=== PATIENT | male | born 1945 | race Caucasian/White ===

== ENCOUNTER 2016-10-02 07:56 | Emergency (ER) | payer OTHER ==
[2016-10-02 08:20] VITALS: RESP 16
[2016-10-02] MEDS ORDERED: NS 1,000 ML IV ONE (08:29)
[2016-10-02] MEDS ORDERED: HYDROmorphONE/DILAUDID 1 MG/ML SYR IVP ONE (08:29)
[2016-10-02] MEDS ORDERED: ONDANSETRON 4 MG/2 ML VIAL IVP ONE (08:29)
--- NOTE | 2016-10-02 08:33 | UCPHY ---
H & P Patient Type: Established Chief Complaint Nursing Narrative: abd pain x 18 hours or so . intermittent / sharp w movement. Chills. Denies fever Time Seen by Provider: 10/02/16 08:22 HPI/ROS: CHIEF COMPLAINT: Abdominal pain HISTORY OF PRESENT ILLNESS: The patient is a 70-year-old man who comes to the Urgent Care complaining of diffuse abdominal pain for the last 18 hours. He describes it as bilateral upper and lower. He has not had a fever. No vomiting or diarrhea or constipation. Denies chest pain or shortness of breath. He does have a history of coronary artery disease and angioplasty several years ago as well as CLL which is being monitored. He does not have any history of abdominal surgery. No history of aneurysm or dissection. No groin or testicular pain. No back pain. REVIEW OF SYSTEMS: Constitutional: denies: chills, fever, recent illness, recent injury EENTM: denies: blurred vision, double vision, nose congestion Respiratory: denies: cough, shortness of breath Cardiac: denies: chest pain, irregular heart rate, lightheadedness, palpitations Gastrointestinal/Abdominal: See HPI Genitourinary: denies: dysuria, frequency, hematuria, pain Musculoskeletal: denies: joint pain, muscle pain Skin: denies: lesions, rash, jaundice, bruising Neurological: denies: headache, numbness, paresthesia, tingling, dizziness, weakness Hematologic/Lymphatic: denies: blood clots, easy bleeding, easy bruising Immunologic/allergic: denies: HIV/AIDS, transplant EXAM: GENERAL: Well-appearing, obese and in no acute distress. HEAD: Atraumatic, normocephalic. EYES: Pupils equal round and reactive to light, extraocular movements intact, sclera anicteric, conjunctiva are normal. ENT: TMs normal, nares patent, oropharynx clear without exudates. Moist mucous membranes. NECK: Normal range of motion, supple without lymphadenopathy or JVD. LUNGS: Breath sounds clear to auscultation bilaterally and equal. No wheezes rales or rhonchi. HEART: Regular rate and rhythm without murmurs, rubs or gallops. ABDOMEN: Distended, nontender, no guarding or rebound noted BACK: No CVA tenderness, no spinal tenderness, step-offs or deformities EXTREMITIES: Normal range of motion, no pitting or edema. No clubbing or cyanosis. NEUROLOGICAL: Cranial nerves II through XII grossly intact. Normal speech, normal gait. 5/5 strength, normal movement in all extremities, normal sensation PSYCH: Normal mood, normal affect. SKIN: Warm, dry, normal turgor, no visible rashes or lesions. Source: Patient Exam Limitations: No limitations - Personal History Current Tetanus Diphtheria and Acellular Pertussis (TDAP): Yes - Medical/Surgical History Hx Asthma: No Hx Chronic Respiratory Disease: No Hx Diabetes: Yes Hx Cardiac Disease: Yes Hx Renal Disease: No Hx Cirrhosis: No Hx Alcoholism: No Other PMH: CLL since 2001. Prostate issues. Diabetes 2. Tonsilectomy. Coronary artery disease - Family History Significant Family History: Hypertension - Social History Smoking Status: Never smoked Alcohol Use: Sober Drug Use: None Constitutional: Initial Vital Signs Temperature (C) 36.8 C 10/02/16 08:16 Heart Rate 94 10/02/16 08:16 Respiratory Rate 16 10/02/16 08:16 Blood Pressure 138/85 H 10/02/16 08:16 O2 Sat (%) 93 10/02/16 08:16 O2 Delivery Mode Room Air Allergies/Adverse Reactions: aspirin [From Percodan] Allergy (Verified 10/02/16 08:14) Hives oxycodone HCl [From Percodan] Allergy (Verified 10/02/16 08:14) Hives oxycodone terephthalate [From Percodan] Allergy (Verified 10/02/16 08:14) Hives Penicillins Allergy (Verified 10/02/16 08:14) Hives Home Medications: Medication Instructions Recorded Simvastatin 04/14/11 Flomax 10/02/16 Metformin HCl 10/02/16 Zolpidem Tartrate 10/02/16 predniSONE 60 mg PO DAILY #15 tab 10/02/16 Medical Decision Making - Diagnostics EKG Interpretation: An EKG obtained and was read and documented in trace view. Please see trace view for full reading and report. Sinus rhythm, no acute ischemic changes ED Course/Re-evaluation: Patient only has 3 platelets. The rest of his CBC is similar to previous draws. He had normal level of platelets 6 months ago. I will redraw to verify. 10:55 a.m. I discussed the test results with the patient. His abdominal exam remains benign. We discussed the likelihood that he will developed diarrhea and possibly nausea. He was not aware of his low platelets. I have paged his oncologist Dr. Bishop to discuss. He has not had any bleeding. 11:[address] Titus who is on-call for Dr. Bishop. 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 He thinks that bone marrow suppression is unlikely because he is not have a significant white count or anemia. Patient understands and agrees with this plan and declines further workup or testing at this time. Differential Diagnosis: Partial list of the Differential diagnosis considered include but were not limited to; gastroenteritis, diverticulitis, constipation, ITP, , bone marrow suppression and although unlikely based on the history and physical exam, I also considered appendicitis, ischemia, aneurysm, acute coronary disease. I discussed these differential diagnoses and the plan with the patient as well as the usual and expected course. The patient understands that the diagnosis is provisional and that in medicine we are not always correct and that further workup is often warranted. Usual and customary warnings were given. All of the patient's questions were answered. The patient was instructed to return to the emergency department should the symptoms at all worsen or return, otherwise to followup with the physician as we discussed. - Data Points Laboratory Results: Laboratory Results 10/02/16 09:50 10/02/16 08:45 10/02/16 10/02/16 10/02/16 10:05 09:50 08:45 WBC 11.08 10^3/uL H 10^3/uL (3.80-9.50) RBC 4.57 10^6/uL 10^6/uL (4.40-6.38) Hgb 14.3 g/dL g/dL (13.7-17.5) Hct 41.2 % % (40.0-51.0) MCV 90.2 fL fL (81.5-99.8) MCH 31.3 pg pg (27.9-34.1) MCHC 34.7 g/dL g/dL (32.4-36.7) RDW 12.5 % % (11.5-15.2) Plt Count < 3.0 10^3/uL L* 10^3/uL (150-400) MPV 12.9 fL H fL (8.7-11.7) Neut % (Auto) 49.0 % % (39.3-74.2) Lymph % (Auto) 40.2 % % (15.0-45.0) [place] % (Auto) 8.4 % % (4.5-13.0) Eos % (Auto) 1.7 % % (0.6-7.6) Baso % (Auto) 0.4 % % (0.3-1.7) Nucleat RBC Rel Count 0.0 % % (0.0-0.2) Absolute Neuts (auto) 5.44 10^3/uL 10^3/uL (1.70-6.50) Absolute Lymphs (auto) 4.45 10^3/uL H 10^3/uL (1.00-3.00) Absolute Monos (auto) 0.93 10^3/uL H 10^3/uL (0.30-0.80) Absolute Eos (auto) 0.19 10^3/uL 10^3/uL (0.03-0.40) Absolute Basos (auto) 0.04 10^3/uL 10^3/uL (0.02-0.10) Absolute Nucleated RBC 0.00 10^3/uL 10^3/uL (0-0.01) Immature Gran % 0.3 % % (0.0-1.1) Immature Gran # 0.03 10^3/uL 10^3/uL (0.00-0.10) Platelet Estimate Cancelled Smear Review By Cancelled Sodium 135 mEq/L mEq/L (134-144) Potassium 3.9 mEq/L mEq/L (3.5-5.2) Chloride 101 mEq/L mEq/L (97-110) Carbon Dioxide 25 mEq/l mEq/l (22-31) Anion Gap 9 mEq/L mEq/L (8-16) BUN 17 mg/dL mg/dL (7-23) Creatinine 1.0 mg/dL mg/dL (0.7-1.3) Estimated GFR > 60 Glucose 178 mg/dL H mg/dL (70-100) Calcium 8.1 mg/dL L mg/dL (8.5-10.4) Total Bilirubin 0.9 mg/dL mg/dL (0.1-1.4) Conjugated Bilirubin 0.2 mg/dL mg/dL (0.0-0.5) Unconjugated Bilirubin 0.7 mg/dL mg/dL (0.0-1.1) AST 15 IU/L L IU/L (17-59) ALT 32 IU/L IU/L (21-72) Alkaline Phosphatase 75 IU/L IU/L (38-126) Total Protein 5.7 g/dL L g/dL (6.3-8.2) Albumin 3.1 g/dL L g/dL (3.5-5.0) Lipase 37.0 IU/L IU/L (23-300) Urine Color YELLOW Urine Appearance CLEAR Urine pH 7.0 (5.0-7.5) Ur Specific [place] 1.010 (1.002-1.030) Urine Protein NEGATIVE (NEGATIVE) Urine Ketones NEGATIVE (NEGATIVE) Urine Blood 1+ H (NEGATIVE) Urine Nitrate NEGATIVE (NEGATIVE) Urine Bilirubin NEGATIVE (NEGATIVE) Urine Urobilinogen 0.2 EU EU (0.2-1.0) Ur Leukocyte Esterase NEGATIVE (NEGATIVE) Urine RBC 5-10 /hpf H /hpf (0-3) Urine WBC 0-1 /hpf /hpf (0-3) Ur Epithelial Cells TRACE /lpf /lpf (NONE-1+) Urine Bacteria TRACE /hpf H /hpf (NONE SEEN) Ur Culture Indicated? NOT INDICATED (NI) Urine Glucose NEGATIVE (NEGATIVE) 10/02/16 08:45 WBC 11.92 10^3/uL H 10^3/uL (3.80-9.50) RBC 5.00 10^6/uL 10^6/uL (4.40-6.38) Hgb 15.7 g/dL g/dL (13.7-17.5) Hct 44.6 % % (40.0-51.0) MCV 89.2 fL fL (81.5-99.8) MCH 31.4 pg pg (27.9-34.1) MCHC 35.2 g/dL g/dL (32.4-36.7) RDW 12.4 % % (11.5-15.2) Plt Count < 3.0 10^3/uL L* 10^3/uL (150-400) MPV 11.6 fL fL (8.7-11.7) Neut % (Auto) 49.2 % % (39.3-74.2) Lymph % (Auto) 39.8 % % (15.0-45.0) [place] % (Auto) 8.7 % % (4.5-13.0) Eos % (Auto) 1.6 % % (0.6-7.6) Baso % (Auto) 0.4 % % (0.3-1.7) Nucleat RBC Rel Count 0.3 % H % (0.0-0.2) Absolute Neuts (auto) 5.86 10^3/uL 10^3/uL (1.70-6.50) Absolute Lymphs (auto) 4.74 10^3/uL H 10^3/uL (1.00-3.00) Absolute Monos (auto) 1.04 10^3/uL H 10^3/uL (0.30-0.80) Absolute Eos (auto) 0.19 10^3/uL 10^3/uL (0.03-0.40) Absolute Basos (auto) 0.05 10^3/uL 10^3/uL (0.02-0.10) Absolute Nucleated RBC 0.03 10^3/uL H 10^3/uL (0-0.01) Immature Gran % 0.3 % % (0.0-1.1) Immature Gran # 0.04 10^3/uL 10^3/uL (0.00-0.10) Platelet Estimate DECREASED L (ADEQ) Smear Review By Pending Sodium Potassium Chloride Carbon Dioxide Anion Gap BUN Creatinine Estimated GFR Glucose Calcium Total Bilirubin Conjugated Bilirubin Unconjugated Bilirubin AST ALT Alkaline Phosphatase Total Protein Albumin Lipase Urine Color Urine Appearance Urine pH Ur Specific [place] Urine Protein Urine Ketones Urine Blood Urine Nitrate Urine Bilirubin Urine Urobilinogen Ur Leukocyte Esterase Urine RBC Urine WBC Ur Epithelial Cells Urine Bacteria Ur Culture Indicated? Urine Glucose Medications Given: Discontinued Medications Hydromorphone HCl (Dilaudid) 0.5 mg IVP EDNOW ONE Stop: 10/02/16 08:30 Last Admin: 10/02/16 08:55 Dose: 0.5 mg Sodium Chloride (Ns) 1,000 mls @ 0 mls/hr IV ONCE ONE PRN Reason: Wide Open Stop: 10/02/16 08:30 Last Admin: 10/02/16 08:55 Dose: 1,000 mls Ondansetron HCl (Zofran) 4 mg IVP EDNOW ONE Stop: 10/02/16 08:30 Last Admin: 10/02/16 08:55 Dose: 4 mg Prednisone (Prednisone) 60 mg PO EDNOW ONE Stop: 10/02/16 11:18 Last Admin: 10/02/16 11:25 Dose: 60 mg Departure - Departure Disposition: Home, Routine, Self-Care Clinical Impression: Thrombocytopenia, Enteritis Condition: Fair Instructions: Thrombocytopenia (ED), Enteritis (ED) Referrals: Jeremy Estrada DO [Primary Care Provider] - As per Instructions Marco A Bishop MD [Medical Doctor] - As per Instructions Prescriptions: predniSONE 60 mg PO DAILY #15 tab - PQRS PQRS Measurement: 134: Depression screening and followup, PRIME MD-PHQ2 (12 years and older) Over the last 2 weeks, how often have you been bothered by any of the following problems? 1. Feeling down, depressed, or hopeless? 2. Little interest or pleasure in doing things? Patient answered no to both 1 and 2 130: Documentation of medications. Reviewed all patient medications, doses, route and frequency. 226: Do you smoke? No. 47: 65 and older: Advanced care planning. Patient designates surrogate decision maker as spouse . Patient has advanced directive. 51: 18 years old and older with diagnosis of COPD, spirometry performance. Spirometry not performed; equipment not available. 52: 18 years old and older with COPD and symptoms of COPD or FEV1<60% predicted prescribed a B Agonist. Not applicable
[2016-10-02 09:10] LABS: % IMMATURE GRANULYOCYTES 0.3 % (0.0-1.1); ABSOLUTE IMMATURE GRANULOCYTES 0.04 10^3/uL (0.00-0.10); ABSOLUTE NRBC COUNT 0.03 10^3/uL (0-0.01); ADD DIFF? NO; ADD MORPH? NO; ADD SCAN? NO; ATYPICAL LYMPHOCYTE FLAG 30 (0-99); FRAGMENT RBC FLAG 0 (0-99); HEMATOCRIT 44.6 % (40.0-51.0); HEMOGLOBIN 15.7 g/dL (13.7-17.5); LEFT SHIFT FLG 0 (0-99); LIPEMIA HEMOLYSIS FLAG 90 (0-99); MEAN CELL HEMOGLOBIN 31.4 pg (27.9-34.1); MEAN CELL HEMOGLOBIN CONCENTR. 35.2 g/dL (32.4-36.7); MEAN CELL VOLUME 89.2 fL (81.5-99.8); MEAN PLATELET VOLUME 11.6 fL (8.7-11.7); NRBC-AUTO% 0.3 % (0.0-0.2); PLATELET CLUMPS FLAG 0 (0-99); RED CELL DISTRIBUTION WIDTH 12.4 % (11.5-15.2)
[2016-10-02 09:25] LABS: PLATELET COUNT < 3.0 10^3/uL (150-400)
[2016-10-02] MEDS ORDERED: IOPAMIDOL (ISOVUE-300) 100 ML BTL IV ONE (09:35)
[2016-10-02 09:36] LABS: ALANINE AMINOTRANSFERASE 32 IU/L (21-72); ALBUMIN 3.1 g/dL (3.5-5.0); ALKALINE PHOSPHATASE 75 IU/L (38-126); ANION GAP 9 mEq/L (8-16); ASPARTATE AMINOTRANSFERASE 15 IU/L (17-59); BILIRUBIN,TOTAL 0.9 mg/dL (0.1-1.4); BILIRUBIN-CONJUGATED 0.2 mg/dL (0.0-0.5); BILIRUBIN-UNCONJUGATED 0.7 mg/dL (0.0-1.1); CALCIUM 8.1 mg/dL (8.5-10.4); CARBON DIOXIDE 25 mEq/l (22-31); CHLORIDE 101 mEq/L (97-110); GLOMERULAR FILTRATION RATE > 60; GLUCOSE 178 mg/dL (70-100); POTASSIUM 3.9 mEq/L (3.5-5.2); SODIUM 135 mEq/L (134-144); TOTAL PROTEIN 5.7 g/dL (6.3-8.2)
[2016-10-02 09:55] LABS: % IMMATURE GRANULYOCYTES 0.3 % (0.0-1.1); ABSOLUTE IMMATURE GRANULOCYTES 0.03 10^3/uL (0.00-0.10); ADD DIFF? NO; ADD MORPH? NO; ADD SCAN? NO; ATYPICAL LYMPHOCYTE FLAG 30 (0-99); FRAGMENT RBC FLAG 0 (0-99); HEMATOCRIT 41.2 % (40.0-51.0); HEMOGLOBIN 14.3 g/dL (13.7-17.5); LEFT SHIFT FLG 0 (0-99); LIPEMIA HEMOLYSIS FLAG 90 (0-99); MEAN CELL HEMOGLOBIN 31.3 pg (27.9-34.1); MEAN CELL HEMOGLOBIN CONCENTR. 34.7 g/dL (32.4-36.7); MEAN CELL VOLUME 90.2 fL (81.5-99.8); MEAN PLATELET VOLUME 12.9 fL (8.7-11.7); PLATELET CLUMPS FLAG 10 (0-99); RED BLOOD CELL COUNT 4.57 10^6/uL (4.40-6.38); RED CELL DISTRIBUTION WIDTH 12.5 % (11.5-15.2)
[2016-10-02 10:12] LABS: COLOR YELLOW; LEUKOCYTE ESTERASE,URINE NEGATIVE (NEGATIVE); NITRITE,URINE NEGATIVE (NEGATIVE)
[2016-10-02 10:23] LABS: PLATELET COUNT < 3.0 10^3/uL (150-400)
--- NOTE | 2016-10-02 10:23 | CPEKG ---
Heart Rate: 90 RR Interval: 667 P-R Interval: 168 QRSD Interval: 80 QT Interval: 356 QTC Interval: 436 P [place]: 51 QRS [place]: 3 T Wave [place]: 44 EKG Severity - NORMAL ECG - EKG Impression: SINUS RHYTHM Electronically Signed By: Mark Pena 02-Oct-2016 10:45:48
[2016-10-02 10:28] LABS: BACTERIA TRACE /hpf (NONE SEEN); WBC,URINE 0-1 /hpf (0-3)
[2016-10-02 10:57] LABS: PLATELET ESTIMATE DECREASED (ADEQ)
[2016-10-02] MEDS ORDERED: predniSONE 20 MG TAB PO ONE (11:17)
[2016-10-02 11:41] VITALS: BP 128/67; PULSE 95; TEMP 98.1; O2SAT 91
== END 2016-10-02 11:40 | disposition home or self-care (01) ==
LOC: CED 07:56
DX: K52.9 Noninfective gastroenteritis and colitis, unspecified (principal); D69.6 Thrombocytopenia, unspecified; C91.10 Chronic lymphocytic leukemia of B-cell type not having achieved remission; I25.10 Atherosclerotic heart disease of native coronary artery without angina pectoris; E11.9 Type 2 diabetes mellitus without complications
CPT/HCPCS: 74177; 93005; 96361; 96374; 96375; G0463; J1170; J2405; Q9967; 80048-PO; 80076-PO; 81003-PO; 81015-PO; 83690-PO; 85025-PO; 93010-PO; 99215-PO

== ENCOUNTER 2016-10-15 15:38 | Emergency (ER) | payer OTHER ==
[2016-10-15 15:56] VITALS: BP 142/66; PULSE 75; RESP 18; TEMP 98; O2SAT 97
--- NOTE | 2016-10-15 16:44 | UCPHY ---
H & P Time Seen by Provider: 10/15/16 15:51 Patient Type: Established HPI/ROS: This patient has a hand injury. Shortly prior to arrival he sustained a direct blow to the dorsum of his hand when he had a mechanical fall while carrying a box. He says like he struck the dorsum verses a rocking chair in the process has a small abrasion and moderate swelling to the region overlying the 4th and 5th metacarpal of the hand. He reports the pain is mild but there is moderate tenderness. He ranks the pain is 5/10 at baseline. The injury occurred shortly prior to arrival. No exacerbating or alleviating factors. ROS: No numbness. No other injuries from the fall. 5 point ROS is otherwise negative. Past Medical/Surgical History: CLL in remission ITP with recent gamma globulin infusion and prednisone with resolution of thrombocytopenia Smoking Status: Never smoked Physical Exam: Physical Exam Vital signs are normal. General: No acute distress HEENT: Atraumatic. Eyes: Pupils equal and react to light. Extraocular motions are intact. Lungs: No respiratory distress. Cardiac: Brisk capillary refill is intact throughout. Pulses are 2+ and symmetric in the affected extremity. Skin: No rash or pallor. Extremities: Atraumatic and normal except for right hand Right hand: Patient has moderate swelling overlying the 4th more than 5th metacarpal dorsally with ecchymosis consistent with a hematoma there is a superficial abrasion 1 cm x 5 mm with minimal bleeding. This is not full- thickness other no foreign bodies present. Neuro: Alert and oriented x3 with no sensorimotor deficits. Initial differential diagnosis: Traumatic hematoma versus fracture of the hand with superficial abrasion. Constitutional: Initial Vital Signs Temperature (C) 36.6 C 10/15/16 15:54 Heart Rate 75 10/15/16 15:54 Respiratory Rate 18 10/15/16 15:54 Blood Pressure 142/66 H 10/15/16 15:54 O2 Sat (%) 97 10/15/16 15:54 O2 Delivery Mode Room Air Allergies/Adverse Reactions: aspirin [From Percodan] Allergy (Verified 10/02/16 08:14) Hives oxycodone HCl [From Percodan] Allergy (Verified 10/02/16 08:14) Hives oxycodone terephthalate [From Percodan] Allergy (Verified 10/02/16 08:14) Hives Penicillins Allergy (Verified 10/02/16 08:14) Hives Home Medications: Medication Instructions Recorded Simvastatin 04/14/11 Flomax 10/02/16 Metformin HCl 10/02/16 Zolpidem Tartrate 10/02/16 predniSONE 60 mg PO DAILY #15 tab 10/02/16 MDM/Departure - MDM Diagnostics: Hand x-ray: Negative for acute fracture by my interpretation ED Course/Re-evaluation: Wound is clean by our tech after let solution and bandages applied. Kirit wrap was also applied. I counseled patient regarding abrasion care and traumatic hematoma. Ice was also applied. - Depart Disposition: Home, Routine, Self-Care Clinical Impression: Traumatic hematoma of hand Qualifiers: Encounter type: initial encounter Laterality: right Qualified Code(s): S60.221A - Contusion of right hand, initial encounter Hand abrasion Qualifiers: Encounter type: initial encounter Laterality: right Qualified Code(s): S60.511A - Abrasion of right hand, initial encounter Condition: Good Instructions: Hematoma (ED) Additional Instructions: Diagnosis: Traumatic hematoma 2. Abrasion Plan: Ice 20 minutes at a time 3 times a day or more until symptoms improve Clean the abrasion daily Tylenol for pain if needed. Symptoms should improve over the next week. Return for recheck he developed pain and redness or concerns for infection. Referrals: Jeremy Estrada DO [Primary Care Provider] - As per Instructions - PQRS PQRS Measurement: 134: Depression screening and followup, PRIME MD-PHQ2 (12 years and older) Over the last 2 weeks, how often have you been bothered by any of the following problems? 1. Feeling down, depressed, or hopeless? 2. Little interest or pleasure in doing things? Patient answered no to both 1 and 2 130: Documentation of medications. Reviewed all patient medications, doses, route and frequency. 226: Do you smoke? [No.] 47: 65 and older: Advanced care planning. Patient designates surrogate decision maker as spouse 51: 18 years old and older with diagnosis of COPD, spirometry performance. NA 52: 18 years old and older with COPD and symptoms of COPD or FEV1<60% predicted prescribed a B Agonist. NA
== END 2016-10-15 16:57 | disposition home or self-care (01) ==
LOC: CED 15:38
DX: S60.221A Contusion of right hand, initial encounter (principal); S60.511A Abrasion of right hand, initial encounter; W19.XXXA Unspecified fall, initial encounter
CPT/HCPCS: 73130; G0463; 99214-PO

== ENCOUNTER → 2017-08-19 | Outpatient (CLI) | payer OTHER | LOC: CIMAGING 19:03 | PROVIDERS: ATTEND Family Medicine | DX: R05 Cough (principal); R91.1 Solitary pulmonary nodule | CPT/HCPCS: 71046-PO ==

== ENCOUNTER → 2017-09-19 | Outpatient (CLI) | payer OTHER | LOC: CIMAGING 08:43 | PROVIDERS: ATTEND Family Medicine | DX: R91.1 Solitary pulmonary nodule (principal); K44.9 Diaphragmatic hernia without obstruction or gangrene; I25.10 Atherosclerotic heart disease of native coronary artery without angina pectoris; M51.34 Other intervertebral disc degeneration, thoracic region; C91.10 Chronic lymphocytic leukemia of B-cell type not having achieved remission; C61 Malignant neoplasm of prostate | CPT/HCPCS: 71250-PO ==

== ENCOUNTER → 2018-05-11 | Outpatient (CLI) | payer OTHER ==
[~2018-05-11] MED LIST: GADOBUTROL 10 ML VIAL IVP ONE
== END ==
LOC: FIMAGING 15:42
PROVIDERS: ATTEND Internal Medicine Hematology & Oncology
DX: C61 Malignant neoplasm of prostate (principal)
CPT/HCPCS: 72197; 76377; A9585; 82565-PO

== ENCOUNTER → 2018-07-06 | Outpatient (CLI) | payer OTHER | LOC: FIMAGING 15:16 | PROVIDERS: ATTEND Physician Assistant Surgical | DX: M51.36 Other intervertebral disc degeneration, lumbar region (principal); M51.34 Other intervertebral disc degeneration, thoracic region; M51.87 Other intervertebral disc disorders, lumbosacral region; M48.061 Spinal stenosis, lumbar region without neurogenic claudication; M48.04 Spinal stenosis, thoracic region; M46.96 Unspecified inflammatory spondylopathy, lumbar region; M46.97 Unspecified inflammatory spondylopathy, lumbosacral region; M51.44 Schmorl's nodes, thoracic region; D18.09 Hemangioma of other sites; D49.2 Neoplasm of unspecified behavior of bone, soft tissue, and skin; C61 Malignant neoplasm of prostate | CPT/HCPCS: 72158; A9585; 82565-PO ==